=== PATIENT | male | born 2000 | race Hispanic/Latino ===

== ENCOUNTER 2023-05-03 19:45 | Emergency (ER) | payer OTHER, SELFPAY ==
[2023-05-03 19:49] VITALS: BP 132/60; PULSE 96; RESP 18; TEMP 37.2; O2SAT 98; BMI 25.8
--- NOTE | 2023-05-03 19:55 | DI.RAD.S_ITS ---
PROCEDURE: XR ELBOW LT MIN 3V INDICATIONS: fell and injured it 2 days ago. TECHNIQUE: 3 views of the elbow were acquired. COMPARISON: None. FINDINGS: Bones: No displaced fracture. No dislocation. Soft tissues: No elbow joint effusion. No suspicious soft tissue calcifications. IMPRESSION: No acute radiographic abnormality. If there is high concern for occult injury, consider repeat radiography or cross-sectional imaging. Dictated by: Gerardo Faith M.D. on 05/03/2023 at 20:37 Approved by: Gerardo Fiath M.D. on 05/03/2023 at 20:38
--- NOTE | 2023-05-03 21:22 | ED.GENADULT ---
HPI - General Adult General Chief complaint: Extremity Injury, Upper Stated complaint: hyperextended lt elbow Time Seen by Provider: 05/03/23 21:13 Source: patient Mode of arrival: Ambulatory History of Present Illness HPI narrative: Patient is a 22-year-old otherwise healthy male who is here for evaluation of a hyperextension of his left elbow. He states that he was mountain biking and coming down hill when he hyperextended his elbow. Reports no other injuries from the event. He can flex and extend his elbow but does have some discomfort. 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 Review of Systems Constitutional Constitutional: Reports system reviewed and no additional complaints, except as documented Musculoskeletal Musculoskeletal: Reports system reviewed and no additional complaints, except as documented Integumentary/Breasts Skin/Breast: Reports system reviewed and no additional complaints, except as documented Neurologic Neurologic: Reports system reviewed and no additional complaints, except as documented Patient History Social History Smoking Status: Never smoker Smoking Status: Never smoker alcohol intake frequency: a few times a month Substance Use Type: does not use Exam Initial Vital Signs Initial Vital Signs: Vital Signs Temperature 99 F 05/03/23 19:49 Pulse Rate 96 H 05/03/23 19:49 Respiratory Rate 18 05/03/23 19:49 Blood Pressure 132/60 05/03/23 19:49 Pulse Oximetry 98 05/03/23 19:49 Oxygen Delivery Method Room Air 05/03/23 19:49 HENMT Head: normal to inspection and normocephalic Cardio Pulses: radial pulses present on the left Skin General: no rashes or lesions noted Neuro Sensory Exam: no sensory deficits noted Extrem Other: His left wrist and left shoulder unremarkable. He can pronate and supinate. He can flex and extend at the left elbow. Course Orders Ordered: ED Orders 05/03/23 19:55 XR elbow LT min 3V Stat Vital Signs Vital signs: Vital Signs - 8 hr 05/03/23 19:49 05/03/23 21:32 Temperature 99 F 98.0 F Pulse Rate 96 H 90 Respiratory Rate 18 16 Blood Pressure 132/60 130/60 Pulse Oximetry 98 98 Oxygen Delivery Method Room Air Room Air Medical Decision Making Imaging Data Extremity x-ray #1: Radiologist's Impression: PROCEDURE:? XR ELBOW LT MIN 3V ? INDICATIONS:? fell and injured it 2 days ago. ? TECHNIQUE:? 3 views of the elbow were acquired.? ? COMPARISON:? None. ? FINDINGS:? ? Bones:? No displaced fracture.? No dislocation. ? Soft tissues:? No elbow joint effusion.? No suspicious soft tissue calcifications.? ? ? IMPRESSION:? No acute radiographic abnormality.? If there is high concern for occult injury, consider repeat radiography or cross-sectional imaging.?? MDM Narrative Medical decision making narrative: Patient is neurovascularly intact. No fractures on the x-ray. He can flex and extend. No further workup required here in the emergency department. We discussed conservative measures for treatment from this point forward. He was given return precautions. He expressed understanding and agreement. Discharge Plan Departure Patient Disposition: Home Clinical Impression: Elbow sprain Instructions: DI for Elbow Sprain Activity Restrictions/Additional Instructions: You can take Tylenol or ibuprofen for any discomfort. You have no restrictions on your activities. Return to the emergency department for new or worsening symptoms. Referrals: ProviderThuy [Primary Care Provider] - Stand Alone Forms: Patient Portal/API
[2023-05-03 21:32] VITALS: BP 130/60; PULSE 90; RESP 16; TEMP 36.7; O2SAT 98
== END 2023-05-03 21:32 | disposition home or self-care (01) ==
PROVIDERS: Emergency Provider Emergency Medicine
DX: S53.402A Unspecified sprain of left elbow, initial encounter (principal); X50.9XXA Other and unspecified overexertion or strenuous movements or postures, initial encounter; Y93.55 Activity, bike riding
CPT/HCPCS: 73080; 99281; 99282

== ENCOUNTER → 2023-09-08 16:05 | Outpatient (CLI) | payer OTHER, SELFPAY ==
--- NOTE | 2023-09-08 | DI.MRI.S_ITS ---
PROCEDURE: MR SHOULDER LT WO CON INDICATIONS: pain in left shoulder TECHNIQUE: Noncontrast oblique coronal T2 fast spin echo with fat saturation, oblique sagittal T1 spin echo and T2 fast spin echo with fat saturation, axial T1 spin echo and T2 fast spin echo with fat saturation through the shoulder. COMPARISON: None. FINDINGS: Image quality: Excellent. Rotator cuff: Distal supraspinatus tendinosis at its insertion on humeral head is seen. The infraspinatus and subscapularis tendons are intact. No full-thickness rotator cuff tendon rupture. Sagittal images demonstrate no rotator cuff muscle atrophy. Bones and bursae: No bone marrow contusions or fractures. No acromioclavicular joint degeneration. The acromion demonstrates conventional anatomy, without an os acromiale. No pathologic subacromial-subdeltoid or subcoracoid bursal fluid is present. Capsule and soft tissues: There is a lobulated cystic structures seen in right spinoglenoid notch and measures up to 1.8 x 2.3 x 1.2 cm in size series 5, image 7, series 7, image 9. Subtle signal abnormality and fraying of posterior labrum extending from 7 to 10 o'clock position is seen. The long head of the biceps tendon demonstrates normal location and morphology. The rotator interval appears normal, without fibrosis. The coracohumeral ligament is normal in thickness. IMPRESSION: 1. Finding is suggestive of posterior labral tear from 7-10 o'clock position with lobulated paralabral cyst in right spinoglenoid notch as described above. 2. Distal supraspinatus tendinosis. No rotator cuff tendon rupture. No rotator cuff muscle atrophy. 3. No marrow edema. No fracture or dislocation. No pathologic joint or bursal fluid. Dictated by: Shun Bay M.D. on 09/09/2023 at 9:43 Approved by: Shun Bay M.D. on 09/09/2023 at 9:50
== END ==
DX: M25.512 Pain in left shoulder (principal)
CPT/HCPCS: 73221

== ENCOUNTER 2024-07-28 07:30 | Outpatient (RCR) | payer OTHER, SELFPAY ==
--- NOTE | 2024-05-19 12:26 | OT.OPPOC ---
Physical, Occupational & Speech Therapy At [facility] [place] NathalieDaniel [id number] 2000 Visit Care Team Role Provider Type Thuy JIMENES Provider Primary Care Provider Non-Staff Address: Phone: PRASHANT Hebert Attending Provider Non-Staff Referring Provider Address: [address] [place] [address], [id number] Occupational Therapy Plan of Care OT Outpatient Adult Evaluation Start: 05/19/24 11:59 Freq: Status: Active Protocol: Document 05/19/24 12:00 MOUSTAPHA (Rec: 05/19/24 12:25 MOUSTAPHA [id number]) General Information - Adult Visit Information Visit Number 11/05 Plan of Care Dates 05/19/24 -07/28/24 Insurance Information Prime, 12 visits Session Time Visit Start Date 05/19/24 Visit Start Time 09:55 Visit Stop Time 10:40 Setting Treatment Setting Outpatient Care Visit Type Note Type Initial Evaluation Referral Referring Physician Linda Bush Reason for Referral L wrist pain s/p FOOSH injury Identification Identification Confirmed Yes Patient Questionnaires Quick Dash- Upper Extremity Quick Dash UE Score 13.6 Quick Dash UE Impairment 1 to 19% Impaired (Score 1-19) Quick Dash- Work and Sports Modules Quick Dash W&S Score 18.75 Quick Dash Work and Sport Impairment 1 to 19% Impaired (Score 1-19) Goals Treatment Treatment pt tolerated STM to L wrist/ digit extensors. Pt reports small change in pain with active wrist flexion following . Chcf Goals Chcf Goals 1. Pt will increase L gymnastics coach or instructor strength equal or greater to non-dominant R side. 2. Pt will increase L lateral pinch to equal or greater to non-dominant R side. 3. Pt will report AROM of L wrist with no pain x 10 trials . 4. Pt will be I with HEP. 5. 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 Assessment/Plan Assessment Patient Response Good Rehabilitation Potential Good Impairments Identified Body Mechanics,Functional Activities,Pain,Weakness,Soft Tissue Mobility Treatment Assessment Pt is 23 yo M with persistent L wrist pain s/p FOOSH injury on 02 March. Pt had x-rays that were negative. Pt reports that after 1 month of therapy MD will order an MRI. Pt is L hand dominant. Pt reports that he has had pain ever since the fall. Pt reports that wrist flexion and extension cause pain as well as holding and maintaining wrist?s positon in space. For example carrying something at work. Pt describes pain as aching and sharp and rates at 4/10. Pt reports less pain with digits flexed verses digits extended when performing wrist flexion and extension. 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 Pt is L hand dominant. Pt demonstrates 5/5 MMT for wrist flexion, wrist extension , supination, pronation, radial deviation, and ulnar deviation. Digit abd 5/5 but with significant c/o increased pain. He demonstrates gymnastics coach or instructor strength on L 100#/80#/85# (avg 88.3), R 100#/101#/105# (avg 102#) Lateral pinch L 16#, R 19#; pincer L 13#, R 12#; 3 jaw L 19#, R 16# DRUJ ballottement test, pt?s distal ulna has excessive volar translation and limited dorsal translation. When OT provided manual support, pt was able to perform resisted digit abduction with no pain. Pt would benefit from Wrist Widget brace or similar. DRUJ volar and dorsal shift tests are same as non-involved side. Pt would benefit from skilled OT services to address deficits in function, increased pain, and promote return to PLOF. Reviewed with Patient Goals Patient Understanding Good Plan Length of treatment (weeks) 10 Plan of Care Start Date 05/19/24 Plan of Care End Date 07/28/24 Treatment Frequency Once a Week Treatment Duration 45 Minutes Therapeutic Contents Active Range of Motion, Functional Activities,Home Exercise Program,Joint Protection,Manual Therapy, Education,Neuromuscular Re- Education,Self-Care,Splinting, Stretching/Flexibility Activities,Therapeutic Activities,Therapeutic Exercises,Modalities Modalities As Needed Types of Modalities Contrast Bath Additional Types of Modalities MHP/CP Patient Instruction Plan of Care,Questions/ Concerns Functional Wrist/Hand Scan Hand Side Sensory Assessment Sensory Profile2 Electronically Signed by: Marilia Painter OT 05/19/24 2953 If you are in agreement with this Plan of Care, please return a signed and dated copy. I have reviewed this Plan of Care and certify that the skilled therapy services above are required to meet the patient?s needs. Physician Signature Date Printed Name and Credentials Clinical Instructor Signature Printed Name and Credentials
--- NOTE | 2024-05-24 12:42 | OT.OP.TRT ---
Visit Care Team Role Provider Type Thuy JALIL Provider Primary Care Provider Non-Staff Specialty: Medical Address: Phone: Email: PRASHANT Hebert Attending Provider Non-Staff Referring Provider Specialty: Nursing Address: [facility] [place], [address] Email: Occupational Therapy Treatment Note OT Outpatient Treatment Note - Adult Start: 05/19/24 11:59 Freq: Status: Active Protocol: Document 05/24/24 09:54 MOUSTAPHA (Rec: 05/24/24 10:14 MOUSTAPHA [id number]) OT Outpatient Adult Treatment Note Session Time Visit Start Date 05/24/24 Visit Start Time 09:45 Visit Stop Time 10:20 Visit Information Visit Number 2/10 Plan of Care Dates 05/19/24 -07/28/24 Insurance Information Prime, 12 visits Setting Treatment Setting Outpatient Care Visit Type Note Type Treatment Note - Subjective Identification Type Name Identification Reconciled With Medical Record Observations Pt reports that he has ordered a wrist widget to help approimate his forearm. Pt reports no pain during today's treatment, except with resisted wrist extension. That he rated at a 3/10 Chief Complaint(s) Pain Effect on Activity - Objective Chcf Goals 1. 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 2. Pt will increase L lateral pinch to equal or greater to non-dominant R side. 3. Pt will report AROM of L wrist with no pain x 10 trials 4. Pt will be I with HEP. 5. 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 - Treatment 2 Descriptor isometric: pronation x30 reps wrist flex x30 wrist ulnar deviation x30 1 Descriptor digit add: with light rubber band 2nd and 3rd, 2nd-4th, 2nd -5th; 3rd and 4th 10x2 each pairing Manual Therapy Manual Therapy STM dorsal interossei to pt tolerance - Assessment Patient Response to Treatment Good Rehabilitation Potential Good Impairments Identified Body Mechanics,Functional Activities,Pain,Weakness,Soft Tissue Mobility Progress Towards Goals Good Progress Assessment of Improvement On eval, pt presented with a + ballottement test and had improvement in pain when OT manually aligned the DRUJ. Based on this, OT added in supination strengthening as well as ECU strengthening to improve stability ad DRUJ. Pt tolerated these exercises well and denied any complaints during them. Pt has ordered a wrist widget to help maintain alignment of his DRUJ throughout the day. 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 Pt verbalizes understanding. Pt tolerated tx well and continues to be appropriate for skilled OT services. Cont per established POC. Reviewed with Patient/Caregiver Goals Patient/Caregiver Understanding Excellent - Plan Therapy Recommendations Continue with Current Program Amount of Therapy Recommended 2-3 Months Frequency of Treatment Once a Week Length of Session 45 Minutes Therapeutic Contents Active Range of Motion, Functional Activities,Home Exercise Program Modalities As Needed Types of Modalities Contrast Bath Additional Types of Modalities MHP/CP
--- NOTE | 2024-05-31 11:01 | OT.OP.TRT ---
Visit Care Team Role Provider Type Thuy JALIL Provider Primary Care Provider Non-Staff Specialty: Medical Address: Phone: Email: PRASHANT Hebert Attending Provider Non-Staff Referring Provider Specialty: Nursing Address: [facility] [place] [address] [place], [address] Email: Occupational Therapy Treatment Note OT Outpatient Treatment Note - Adult Start: 05/19/24 11:59 Freq: Status: Active Protocol: Document 05/31/24 08:15 MOUSTAPHA (Rec: 05/31/24 09:05 MOUSTAPHA [id number]) OT Outpatient Adult Treatment Note Session Time Visit Start Date 05/31/24 Visit Start Time 08:15 Visit Stop Time 09:00 Visit Information Visit Number 3/10 Plan of Care Dates 05/19/24 -07/28/24 Insurance Information Prime, 12 visits Setting Treatment Setting Outpatient Care Visit Type Note Type Treatment Note - Subjective Identification Type Name Identification Reconciled With Medical Record Observations Pt reports that his wrist widget is supposed to be delivered today. Pt reports that he has been trying to grasp things in neutral or supinated position, but reports he still has pain in these position. Pt reports the objects have to be 10-15# before having painful response . Pt reports no pain at start of tx. Chief Complaint(s) Pain Effect on Activity - Objective Fdc Goals 1. Pt will increase L insulation hoseman strength equal or greater to non-dominant R side. 2. Pt will increase L lateral pinch to equal or greater to non-dominant R side. 3. Pt will report AROM of L wrist with no pain x 10 trials 4. Pt will be I with HEP. 5. 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 - Treatment 4 Descriptor tputty: green gross grasp until fatigue 60 seconds 3 Descriptor Proprioception: wiffle ball with marbles neutral wrist position CW and CCW x 90 seconds 2 Descriptor isometric: (neutral position) pronation x30 reps (neutral position) wrist flex x30 (neutral position) wrist ext x30 (neutral position) wrist ulnar deviation x30 1 Descriptor digit add: with light rubber band 2nd and 3rd, 2nd-4th, 2nd -5th; 3rd and 4th 10x2 each pairing Manual Therapy Manual Therapy STM dorsal interossei to pt tolerance - Assessment Patient Response to Treatment Good Rehabilitation Potential Good Impairments Identified ADLs,Body Mechanics,Functional Activities,Pain,Weakness,Soft Tissue Mobility Progress Towards Goals Good Progress Assessment of Improvement Pt does not present with any guarding behaviors during treatment session. During treatment pt reports pain at max of 3/10 It was just one exercise though. Pt tolerated addition of proprioceptive tasks today with some fatigue following 90 seconds. Pt continues to c/o pain with AROM of L wrist, specifically into extension. OT issued pt green tputty for insulation hoseman strengthening. OT will issue isometric HEP next week, currently pt still requires vcs to perform correctly. Cont per established POC. Reviewed with Patient/Caregiver Goals Patient/Caregiver Understanding Excellent - Plan Therapy Recommendations Continue with Current Program Amount of Therapy Recommended 2-3 Months Frequency of Treatment Once a Week Length of Session 45 Minutes Therapeutic Contents Active Range of Motion, Functional Activities,Home Exercise Program Modalities As Needed Types of Modalities Contrast Bath Additional Types of Modalities MHP/CP
--- NOTE | 2024-06-07 09:45 | OT.OP.TRT ---
Visit Care Team Role Provider Type Phuongshantal JALIL Provider Primary Care Provider Non-Staff Specialty: Medical Address: Phone: Email: PRASHANT Hebert Attending Provider Non-Staff Referring Provider Specialty: Nursing Address: [facility] [place], [address] Email: Occupational Therapy Treatment Note OT Outpatient Treatment Note - Adult Start: 05/19/24 11:59 Freq: Status: Active Protocol: Document 06/07/24 09:00 MOUSTAPHA (Rec: 06/07/24 07:29 MARYDREW [id number]) OT Outpatient Adult Treatment Note Session Time Visit Start Date 06/07/24 Visit Start Time 09:00 Visit Stop Time 09:43 Visit Information Visit Number 02/01 Plan of Care Dates 05/19/24 -07/28/24 Insurance Information Prime, 12 visits Setting Treatment Setting Outpatient Care Visit Type Note Type Treatment Note - Subjective Identification Type Name Identification Reconciled With Medical Record Observations Pt reports he has noticed no change. Pt reports he got his wrist widget on last Wednesday and has been wearing it since . 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 Pt will increase L vat house supervisor strength equal or greater to non-dominant R side. 2. Pt will increase L lateral pinch to equal or greater to non-dominant R side. 3. Pt will report AROM of L wrist with no pain x 10 trials . MET 06/07/24 4. Pt will be I with HEP. 5. 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 - Treatment 5 Descriptor digi flex 5.0: alternating digits x30 full vat house supervisor x30 4 Descriptor tputty: 3 Descriptor Proprioception: wiffle ball with marbles neutral wrist position CW and CCW x 90 seconds 2 Descriptor isometric: (neutral position) pronation x30 reps (neutral position) wrist flex x30 (neutral position) wrist ext x30 (neutral position) wrist ulnar deviation x30 1 Descriptor digit add: with light green extension tool Manual Therapy Manual Therapy STM dorsal interossei to pt tolerance - Assessment Patient Response to Treatment Good Rehabilitation Potential Good Impairments Identified ADLs,Body Mechanics,Functional Activities,Pain,Weakness,Soft Tissue Mobility Progress Towards Goals Good Progress Assessment of Improvement Pt demonstrated AROM wrist flexion and extension at start of tx without any provocation of pain, meeting LTG #3. Pt does not present with any guarding behaviors during treatment session. OT issued pt isometric HEP, pt demonstrated these with min vcs, will reassess at next tx. Pt denies any pain during tx. Cont per established POC. Reviewed with Patient/Caregiver Goals Patient/Caregiver Understanding Excellent - Plan Therapy Recommendations Continue with Current Program Amount of Therapy Recommended 2-3 Months Frequency of Treatment Once a Week Length of Session 45 Minutes Therapeutic Contents Active Range of Motion, Functional Activities,Home Exercise Program Modalities As Needed Types of Modalities Contrast Bath Additional Types of Modalities MHP/CP
--- NOTE | 2024-06-12 10:20 | OT.OP.TRT ---
Visit Care Team Role Provider Type Thuy JALIL Provider Primary Care Provider Non-Staff Specialty: Medical Address: Phone: Email: PRASHANT Hebert Attending Provider Non-Staff Referring Provider Specialty: Nursing Address: [facility] [place], [address] Email: Occupational Therapy Treatment Note OT Outpatient Treatment Note - Adult Start: 05/19/24 11:59 Freq: Status: Active Protocol: Document 06/12/24 09:05 KEVINGLENNEMEKALENIN (Rec: 06/12/24 07:44 MARYDREW [id number]) OT Outpatient Adult Treatment Note Session Time Visit Start Date 06/12/24 Visit Start Time 09:05 Visit Stop Time 09:40 Visit Information Visit Number 03/03 Plan of Care Dates 05/19/24 -07/28/24 Insurance Information Prime, 12 visits Setting Treatment Setting Outpatient Care Visit Type Note Type Treatment Note - Subjective Identification Type Name Identification Reconciled With Medical Record Observations Pt reports no pain at start of tx. Pt reports that his pain is getting less frequent at work, but still occasionally has pain when lifting at work. Pt reports he tries to use his R UE mostly. 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 Pt will increase L deputy sheriff/investigator strength equal or greater to non-dominant R side. 2. Pt will increase L lateral pinch to equal or greater to non-dominant R side. 3. Pt will report AROM of L wrist with no pain x 10 trials . MET 06/07/24 4. Pt will be I with HEP. 5. 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 - Treatment 6 Descriptor free weight: 1# x10 each wrist flexion wrist extension radial/ulnar deviation pronation/supination 5 Descriptor digi flex 5.0: alternating digits x30 full deputy sheriff/investigator x30 4 Descriptor tputty: 3 Descriptor Proprioception: wiffle ball with marbles neutral wrist position CW and CCW x 90 seconds 2 Descriptor isometric: (neutral position) pronation x30 reps (neutral position) wrist flex x30 (neutral position) wrist ext x30 (neutral position) wrist ulnar deviation x30 1 Descriptor digit add: with light green extension tool x30 Manual Therapy Manual Therapy STM dorsal interossei to pt tolerance - Assessment Patient Response to Treatment Good Rehabilitation Potential Good Impairments Identified ADLs,Body Mechanics,Functional Activities,Pain,Weakness,Soft Tissue Mobility Progress Towards Goals Good Progress Assessment of Improvement Pt makes progress toward goals # 2 and #4. Pt does not present with any guarding behaviors during treatment session. Pt reports notable improvement in pain, reporting minimal pain at work and no pain during tx session. Pt continues to need review for HEP, as he needed vcs to perform correctly today. Cont per established POC. Reviewed with Patient/Caregiver Goals Patient/Caregiver Understanding Excellent - Plan Therapy Recommendations Continue with Current Program Amount of Therapy Recommended 2-3 Months Frequency of Treatment Once a Week Length of Session 45 Minutes Therapeutic Contents Active Range of Motion, Functional Activities,Home Exercise Program Modalities As Needed Types of Modalities Contrast Bath Additional Types of Modalities MHP/CP
--- NOTE | 2024-06-19 08:56 | OT.OP.TRT ---
Visit Care Team Role Provider Type Thuy JALIL Provider Primary Care Provider Non-Staff Specialty: Medical Address: Phone: Email: PRASHANT Hebert Attending Provider Non-Staff Referring Provider Specialty: Nursing Address: [address] [place], [address] Email: Occupational Therapy Treatment Note OT Outpatient Treatment Note - Adult Start: 05/19/24 11:59 Freq: Status: Active Protocol: Document 06/19/24 08:15 MOUSTAPHA (Rec: 06/19/24 07:25 MOUSTAPHA [id number]) OT Outpatient Adult Treatment Note Session Time Visit Start Date 06/19/24 Visit Start Time 08:15 Visit Stop Time 08:55 Visit Information Visit Number 04/03 Plan of Care Dates 05/19/24 -07/28/24 Insurance Information Prime, 12 visits Setting Treatment Setting Outpatient Care Visit Type Note Type Treatment Note - Subjective Identification Type Name Identification Reconciled With Medical Record Observations Pt reports that he is going to be putting in a request for an MRI, as he was instructed by his MD following 4 weeks of therapy. Pt reports that his pain is primarily at work. He no longer has pain with pulmonary physical therapist. He continues to wear his wrist widget all the time. 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 Pt will increase L forest nursery worker strength equal or greater to non-dominant R side. MET 1b. Pt will increase L forest nursery worker strength to 10# greater than R side to improve use of tools for work. 2. Pt will increase L lateral pinch to equal or greater to non-dominant R side. 3. Pt will report AROM of L wrist with no pain x 10 trials . MET 06/07/24 4. Pt will be I with HEP. 5. 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 - Treatment 6 Descriptor free weight: 1# x30 each wrist flexion wrist extension radial/ulnar deviation pronation/supination 5 Descriptor digi flex 5.0: alternating digits x30 full forest nursery worker x30 4 Descriptor tputty: 3 Descriptor Proprioception: wiffle ball with marbles neutral wrist position CW and CCW x 120 seconds 2 Descriptor isometric: (neutral position) pronation x30 reps (neutral position) wrist flex x30 (neutral position) wrist ext x30 (neutral position) wrist ulnar deviation x30 1 Descriptor digit add: with light green extension tool x30 - Assessment Patient Response to Treatment Good Rehabilitation Potential Good Impairments Identified ADLs,Body Mechanics,Functional Activities,Pain,Weakness,Soft Tissue Mobility Progress Towards Goals Good Progress Assessment of Improvement Pt has met goal #2 (OT upgrade goal as pt is L handed) and makes progress toward goal #4. Pt does not present with any guarding behaviors during treatment session. Pt reports notable improvement in pain, reporting minimal pain at work and no pain during tx session. Pt reports he can tolerate increased weight at work prior to pain response. Pt tolerated increased reps and time with all exercises. No pain during tx. Pt continues to need review for HEP, as he needed vcs to perform correctly today. Cont per established POC. Reviewed with Patient/Caregiver Goals Patient/Caregiver Understanding Excellent - Plan Therapy Recommendations Continue with Current Program Amount of Therapy Recommended 2-3 Months Frequency of Treatment Once a Week Length of Session 45 Minutes Therapeutic Contents Active Range of Motion, Functional Activities,Home Exercise Program Modalities As Needed Types of Modalities Contrast Bath Additional Types of Modalities MHP/CP
--- NOTE | 2024-07-19 08:59 | OT.OP.TRT ---
Visit Care Team Role Provider Type Sumayalizettwinifred JALIL Provider Primary Care Provider Non-Staff Specialty: Medical Address: Phone: Email: PRASHANT Hebert Attending Provider Non-Staff Referring Provider Specialty: Nursing Address: [facility] [place], [address] Email: Occupational Therapy Treatment Note OT Outpatient Treatment Note - Adult Start: 05/19/24 11:59 Freq: Status: Active Protocol: Document 07/19/24 08:15 MOUSTAPHA (Rec: 07/19/24 07:29 MOUSTAPHA [id number]) OT Outpatient Adult Treatment Note Session Time Visit Start Date 07/19/24 Visit Start Time 08:15 Visit Stop Time 08:55 Visit Information Visit Number 05/03 Plan of Care Dates 05/19/24 -07/28/24 Insurance Information Prime, 12 visits Setting Treatment Setting Outpatient Care Visit Type Note Type Treatment Note - Subjective Identification Type Name Identification Reconciled With Medical Record Observations Pt reports having an 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 Pt stopped wearing wrist widget approximately 2 weeks ago. Pt denies having any pain unless I lift something heavy. Pt reports 20# in a pronated or supinated position. Chief Complaint(s) Pain Effect on Activity - Objective Long-Term Goals 1. 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 MET 1b. Pt will increase L television news producer strength to 10# greater than R side to improve use of tools for work. 2. Pt will increase L lateral pinch to equal or greater to non-dominant R side. 3. Pt will report AROM of L wrist with no pain x 10 trials . MET 06/07/24 4. Pt will be I with HEP. MET 07/19/24 5. 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 - Treatment 6 Descriptor free weight: 1# x30 each wrist flexion wrist extension radial/ulnar deviation pronation/supination 5 Descriptor digi flex 5.0: alternating digits x30 full television news producer x30 3 Descriptor Proprioception: wiffle ball with marbles neutral wrist position CW and CCW x 120 seconds 1 Descriptor digit add: with light green extension tool x30 - Assessment Patient Response to Treatment Good Rehabilitation Potential Good Impairments Identified ADLs,Body Mechanics,Functional Activities,Pain,Weakness,Soft Tissue Mobility Progress Towards Goals Good Progress Assessment of Improvement Pt no longer has pain with resisted digit abduction. Pt has d/c wrist widget with appropriateness. Pt continues to increase overall television news producer and forearm strength and reports decreased instances of pain with normal activities and work related tasks. Pt is making good progress toward remaining goals. Cont per established POC. Reviewed with Patient/Caregiver Goals Patient/Caregiver Understanding Excellent - Plan Therapy Recommendations Continue with Current Program Amount of Therapy Recommended 2-3 Months Frequency of Treatment Once a Week Length of Session 45 Minutes Therapeutic Contents Active Range of Motion, Functional Activities,Home Exercise Program Modalities As Needed Types of Modalities Contrast Bath Additional Types of Modalities MHP/CP
--- NOTE | 2024-07-28 11:53 | OT.OP.TRT ---
Visit Care Team Role Provider Type Thuy JALIL Provider Primary Care Provider Non-Staff Specialty: Medical Address: Phone: Email: PRASHANT Hebert Attending Provider Non-Staff Referring Provider Specialty: Nursing Address: [address] [place], [address] Email: Occupational Therapy Treatment Note OT Outpatient Treatment Note - Adult Start: 05/19/24 11:59 Freq: Status: Active Protocol: Document 07/28/24 07:30 MOUSTAPHA (Rec: 07/28/24 07:26 MOUSTAPHA [id number]) OT Outpatient Adult Treatment Note Session Time Visit Start Date 07/28/24 Visit Start Time 07:30 Visit Stop Time 08:15 Visit Information Visit Number 06/03 Plan of Care Dates 05/19/24 -07/28/24 Insurance Information Prime, 12 visits Setting Treatment Setting Outpatient Care Visit Type Note Type Treatment Note - Subjective Identification Type Name Identification Reconciled With Medical Record Observations Pt denies any pain with normal use of L hand. He reports that he has not returned to his normal weight lifting, but otherwise performs all tasks without c/o pain. 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 Pt will increase L senior compensation consultant strength equal or greater to non-dominant R side. MET 1b. Pt will increase L senior compensation consultant strength to 10# greater than R side to improve use of tools for work. MET 07/28/24 2. Pt will increase L lateral pinch to equal or greater to non-dominant R side. MET 3. Pt will report AROM of L wrist with no pain x 10 trials . MET 06/07/24 4. Pt will be I with HEP. MET 07/19/24 5. 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 07/28/24 - Treatment 6 Descriptor free weight: 2# x30 each wrist flexion wrist extension radial/ulnar deviation pronation/supination 5 Descriptor digi flex 5.0: alternating digits x30 full senior compensation consultant x30 3 Descriptor Proprioception: wiffle ball with marbles neutral wrist position CW and CCW x 120 seconds 1 Descriptor digit add: with light green extension tool x30 - Assessment Patient Response to Treatment Excellent Rehabilitation Potential Excellent Impairments Identified ADLs,Body Mechanics,Functional Activities,Pain,Weakness,Soft Tissue Mobility Progress Towards Goals Excellent Progress,Goals Met, Appropriate for Discharge Assessment of Overall Progress Rehabilitated Assessment of Improvement Pt demonstrates good form with free weight exercises and tolerated increased resistance , pt will continue these on his own for HEP. Pt tolerates all treatment well and reports no replicated symptoms with normal daily tasks. Pt has made excellent progress with skilled OT services and is prepared for d/c at this time. Pt has pain free wrist and forearm strength of 5/5 and no longer has pain with digit abd also 5/5. Pt demonstrates increased senior compensation consultant and pinch strength on L dominant hand ( see objective section for measurements for details), overall he demonstrates 8.4# increase on average L senior compensation consultant and increases on lateral and pincer strength. Pt has met or exceeded all established goals. Pt purchased and wore wrist widget for approximately 6 weeks due to DRUJ instability, specifically excessive volar translation. Pt is - for DRUJ ballottement test at this time. Pt has made excellent progress with skilled OT services and is prepared for d/c at this time. Reviewed with Patient/Caregiver Goals Patient/Caregiver Understanding Excellent - Plan Therapy Recommendations Discharge to Home Exercise Program Amount of Therapy Recommended No Further Therapy Therapeutic Contents Active Range of Motion, Functional Activities,Home Exercise Program Modalities As Needed Types of Modalities Contrast Bath Additional Types of Modalities MHP/CP
--- NOTE | 2024-07-28 11:54 | OT.OP.DC ---
Visit Care Team Role Provider Type Thuy JALIL Provider Primary Care Provider Non-Staff Address: Phone: Email: PRASHANT Hebert Attending Provider Non-Staff Referring Provider Address: [address] [place], [address] Email: OT Outpatient OT Outpatient Adult Evaluation Start: 05/19/24 11:59 Freq: Status: Active Protocol: Document 05/19/24 12:00 MOUSTAPHA (Rec: 05/19/24 12:25 MOUSTAPHA [id number]) General Information - Adult Visit Information Visit Number 11/05 Plan of Care Dates 05/19/24 -07/28/24 Insurance Information Prime, 12 visits Session Time Visit Start Date 05/19/24 Visit Start Time 09:55 Visit Stop Time 10:40 Setting Treatment Setting Outpatient Care Visit Type Note Type Initial Evaluation Referral Referring Physician Linda Bush Reason for Referral L wrist pain s/p FOOSH injury Identification Identification Confirmed Yes Patient Questionnaires Quick Dash- Upper Extremity Quick Dash UE Score 13.6 Quick Dash UE Impairment 1 to 19% Impaired (Score 1-19) Quick Dash- Work and Sports Modules Quick Dash W&S Score 18.75 Quick Dash Work and Sport Impairment 1 to 19% Impaired (Score 1-19) Goals Treatment Treatment pt tolerated STM to L wrist/ digit extensors. Pt reports small change in pain with active wrist flexion following . Alf Goals Developer Relations Manager Goals 1. Pt will increase L boiler blower strength equal or greater to non-dominant R side. 2. Pt will increase L lateral pinch to equal or greater to non-dominant R side. 3. Pt will report AROM of L wrist with no pain x 10 trials . 4. Pt will be I with HEP. 5. 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 Assessment/Plan Assessment Patient Response Good Rehabilitation Potential Good Impairments Identified Body Mechanics,Functional Activities,Pain,Weakness,Soft Tissue Mobility Treatment Assessment Pt is 23 yo M with persistent L wrist pain s/p FOOSH injury on 02 March. Pt had x-rays that were negative. Pt reports that after 1 month of therapy MD will order an MRI. Pt is L hand dominant. Pt reports that he has had pain ever since the fall. Pt reports that wrist flexion and extension cause pain as well as holding and maintaining wrist?s positon in space. For example carrying something at work. Pt describes pain as aching and sharp and rates at 4/10. Pt reports less pain with digits flexed verses digits extended when performing wrist flexion and extension. 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 Pt is L hand dominant. Pt demonstrates 5/5 MMT for wrist flexion, wrist extension , supination, pronation, radial deviation, and ulnar deviation. Digit abd 5/5 but with significant c/o increased pain. He demonstrates boiler blower strength on L 100#/80#/85# (avg 88.3), R 100#/101#/105# (avg 102#) Lateral pinch L 16#, R 19#; pincer L 13#, R 12#; 3 jaw L 19#, R 16# DRUJ ballottement test, pt?s distal ulna has excessive volar translation and limited dorsal translation. When OT provided manual support, pt was able to perform resisted digit abduction with no pain. Pt would benefit from Wrist Widget brace or similar. DRUJ volar and dorsal shift tests are same as non-involved side. Pt would benefit from skilled OT services to address deficits in function, increased pain, and promote return to PLOF. Reviewed with Patient Goals Patient Understanding Good Plan Length of treatment (weeks) 10 Plan of Care Start Date 05/19/24 Plan of Care End Date 07/28/24 Treatment Frequency Once a Week Treatment Duration 45 Minutes Therapeutic Contents Active Range of Motion, Functional Activities,Home Exercise Program,Joint Protection,Manual Therapy, Education,Neuromuscular Re- Education,Self-Care,Splinting, Stretching/Flexibility Activities,Therapeutic Activities,Therapeutic Exercises,Modalities Modalities As Needed Types of Modalities Contrast Bath Additional Types of Modalities MHP/CP Patient Instruction Plan of Care,Questions/ Concerns Functional Wrist/Hand Scan Hand Side Sensory Assessment Sensory Profile2 OT Outpatient Treatment Note - Adult Start: 05/19/24 11:59 Freq: Status: Active Protocol: Document 07/28/24 07:30 MOUSTAPHA (Rec: 07/28/24 07:26 MOUSTAPHA [id number]) OT Outpatient Adult Treatment Note Session Time Visit Start Date 07/28/24 Visit Start Time 07:30 Visit Stop Time 08:15 Visit Information Visit Number 8/ Plan of Care Dates 05/19/24 -07/28/24 Insurance Information Ester Mcfarland, 12 visits Setting Treatment Setting Outpatient Care Visit Type Note Type Discharge Note - Subjective Identification Type Name Identification Reconciled With Medical Record Observations Pt denies any pain with normal use of L hand. He reports that he has not returned to his normal weight lifting, but otherwise performs all tasks without c/o pain. - Objective Objective Measurements Drapery Counselor: L 105#, 85#, 100# (avg 96.7#) R 90#, 80#, 86# (avg 85.3#) lateral pinch: L 18.5# R 16# pincer pinch: L 17# R 16# 3 jaw pinch: L 19# R 18# Developer Relations Manager Goals 1. Pt will increase L boiler blower strength equal or greater to non-dominant R side. MET 1b. Pt will increase L boiler blower strength to 10# greater than R side to improve use of tools for work. MET 07/28/24 2. Pt will increase L lateral pinch to equal or greater to non-dominant R side. MET 3. Pt will report AROM of L wrist with no pain x 10 trials . MET 06/07/24 4. Pt will be I with HEP. MET 07/19/24 5. 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 07/28/24 - - Assessment Patient Response to Treatment Excellent Rehabilitation Potential Excellent Impairments Identified ADLs,Body Mechanics,Functional Activities,Pain,Weakness,Soft Tissue Mobility Progress Towards Goals Excellent Progress,Goals Met, Appropriate for Discharge Assessment of Overall Progress Rehabilitated Assessment of Improvement Pt has pain free wrist and forearm strength of 5/5 and no longer has pain with digit abd also 5/5. Pt demonstrates increased boiler blower and pinch strength on L dominant hand ( see objective section for measurements for details), overall he demonstrates 8.4# increase on average L boiler blower and increases on lateral and pincer strength. Pt has met or exceeded all established goals. Pt purchased and wore wrist widget for approximately 6 weeks due to DRUJ instability, specifically excessive volar translation. Pt is - for DRUJ ballottement test at this time. Pt has made excellent progress with skilled OT services and is prepared for d/c at this time. Reviewed with Patient/Caregiver Goals Patient/Caregiver Understanding Excellent - Plan Therapy Recommendations Discharge to Home Exercise Program Amount of Therapy Recommended No Further Therapy Therapeutic Contents Active Range of Motion, Functional Activities,Home Exercise Program Modalities As Needed Types of Modalities Contrast Bath Additional Types of Modalities MHP/CP
== END 2024-08-15 10:16 | disposition home or self-care (01) ==
LOC: OT 07:30
PROVIDERS: Referring Provider Nurse Practitioner Family; Visit Provider Nurse Practitioner Family
DX: M25.532 Pain in left wrist (principal)
CPT/HCPCS: 97110; 97140; 97165

== ENCOUNTER → 2024-09-12 08:53 | Outpatient (CLI) | payer OTHER, SELFPAY | PROVIDERS: Referring Provider Nurse Practitioner Family; Visit Provider Nurse Practitioner Family | DX: D86.0 Sarcoidosis of lung (principal) | CPT/HCPCS: 94060; 94729 ==

== ENCOUNTER → 2024-11-06 07:40 | Outpatient (CLI) | payer OTHER, SELFPAY ==
--- NOTE | 2024-11-06 07:41 | DI.ECHO.S_ITS ---
[facility] : : [address] : : [place] : : [id number] : : Phone: [phone] Echocardiogram Report + + :Name: OSCAR DODGE JR Study Date: 11/06/2024 Height: 65 in : :Hospital ReadingLocation: Weight: 180 lb : : Gender: Male BSA: 1.9 m2 : :: 2000 Age: 23 yrs BP: 118/72 mmHg: :Reason For Study: SHORTNESS OF BREATH, CHEST PAIN : :Ordering Physician: MAC, : :ISA Performed By: Ibis Long : :Referring: ISA WATTS : + + Interpretation Summary The patient was in sinus tachycardia with heart rates between 96-123 bpm during the exam. The ejection fraction is estimated to be 60-65%. The right ventricle is normal in size and function. Pulmonary artery pressures cannot be estimated because of the lack of a measurable TR jet velocity. No significant valvular abnormality. Procedure: A two-dimensional transthoracic echocardiogram with color flow and Doppler was performed. The study quality was technically adequate. Comparison is made with the echocardiogram of 06/21/2024. The patient was in sinus tachycardia with heart rates between 96-123 bpm during the exam. Left Ventricle: The left ventricle is normal in size and wall thickness. The ejection fraction is estimated to be 60-65%. Left ventricular wall motion is normal. Diastolic function could not be accurately assessed due to tachycardia. Right Ventricle: The right ventricle is normal in size and function. Atria: The left atrial size is normal. Right atrial size is normal. There is no Doppler evidence for an interatrial shunt. Mitral Valve: The mitral valve leaflets appear to open well. There is no mitral regurgitation noted. Aortic Valve: The aortic valve is trileaflet. The aortic valve opens well. There is no aortic valve stenosis. No aortic regurgitation is present. Tricuspid Valve: The tricuspid valve leaflets are thin and pliable. There is a trace or physiologic amount of tricuspid regurgitation. Pulmonary artery pressures cannot be estimated because of the lack of a measurable TR jet velocity. Pulmonic Valve: The pulmonic valve leaflets are thin and pliable; valve motion is normal. There is trace pulmonic regurgitation. Great Vessels: The aortic root is normal size. The dimensions of the ascending aorta are normal. The IVC is of normal diameter and collapses greater than 50% with a sniff. This suggests a low right atrial pressure of 3 mm Hg. Pericardium/ Pleura There is no pericardial effusion. There is no pleural effusion. MMode/2D Measurements & Calculations LVIDd: 4.6 cm LVOT diam: 2.2 cm LVIDs: 3.0 cm Ao root diam: 2.8 cm FS: 35.6 % asc Aorta Diam: 2.9 cm IVSd: 0.66 cm Ao Arch Diam (Prox Trans): 2.8 cm LVPWd: 0.75 cm LV lang. diameter/BSA (cm/m^2): 2.4 LV sys. diameter/BSA (cm/m^2): 1.6 LA A2 area: 15.6 cm2 RA long axis: 4.3 cm LA A4 area: 12.0 cm2 RA area: 14.0 cm2 LA length (vol): 4.6 cm RA vol: 38.2 ml LA vol: 34.7 ml RA : 20.2 ml/m2 LA vol index: 18.4 ml/m2 IVC diam: 0.85 cm RVD1 (basal): 4.0 cm RVD2 (mid): 2.5 cm TAPSE: 1.7 cm Doppler Measurements & Calculations Ao V2 max: 122.4 cm/sec LVOT Max Blair: 104.5 cm/sec Ao V2 mean: 80.5 cm/sec LV V1 max P.4 mmHg Ao max P.0 mmHg LV V1 VTI: 15.4 cm Ao mean P.0 mmHg DELORES(I,D): 3.7 cm2 Ao V2 VTI: 15.4 cm DELORES(V,D): 3.2 cm2 sev ratio: 1.0 DELORES indexed to BSA (cm^2/m^2): 2.0 MV E max blair: 54.0 cm/sec PA V2 max: 112.8 cm/sec MV A max blair: 41.3 cm/sec PA V2 mean: 66.7 cm/sec MV E/A: 1.3 PA mean P.3 mmHg Med Peak E' Blair: 8.9 cm/sec PA pr(Accel): 37.9 mmHg E/E' med: 6.1 Lat Peak E' Blair: 9.5 cm/sec E/E' lat: 5.7 E/e' average: 5.9 MV dec time: 0.14 sec SV(LVOT): 57.4 ml Reading Physician:HOMERO
--- NOTE | 2024-11-06 07:54 | DI.RAD.S_ITS ---
PROCEDURE: XR CHEST 2V INDICATIONS: COUGH TECHNIQUE: 2 views of the chest were acquired. COMPARISON: None. FINDINGS: Surgical changes and devices: None. Lungs and pleura: Patchy opacity in the right upper lung zone. Mediastinum: Mediastinal contours are normal. Heart size is normal. Bones and chest wall: No suspicious bony abnormalities. Soft tissues appear unremarkable. IMPRESSION: Patchy opacity in the right upper lung zone, concerning for bacterial pneumonia. Dictated by: Roland Chou M.D. on 11/06/2024 at 11:08 Approved by: Roland Chou M.D. on 11/06/2024 at 11:15
--- NOTE | 2024-11-06 10:05 | EKG_ITS ---
[address] [address] Test Date: 2024-11-06 Pat Name: Daniel Arnold Jr Department: DEFAULT Room: Gender: Male Gm Mobile: ROXANE : 2000 Requested By: Order Number: [id number] Reading MD: Lazaro Mcclellan MD Measurements Intervals [place] Rate: 95 P: 57 IA: 138 QRS: 52 QRSD: 88 T: 39 QT: 330 QTc: 414 Interpretive Statements Normal sinus rhythm Early repolarization Electronically Signed On 11-06-2024 16:45:53 PST by Lazaro Mcclellan MD
== END ==
PROVIDERS: Referring Provider Chiropractor; Visit Provider Chiropractor
DX: R00.0 Tachycardia, unspecified (principal); R06.02 Shortness of breath; R07.9 Chest pain, unspecified
CPT/HCPCS: 71046; 93005; 93010; 93306

== ENCOUNTER → 2025-01-10 12:39 | Outpatient (CLI) | payer OTHER, SELFPAY ==
--- NOTE | 2025-01-10 13:08 | DI.MRI.S_ITS ---
PROCEDURE: MR LUMBAR SPINE WO CON INDICATIONS: LOW BACK PAIN TECHNIQUE: Noncontrast sagittal T1 spin echo and T2 fast echo, sagittal STIR, and T2 fast spin echo through the lumbar spine. In cases with scoliosis, additional coronal T2 fast spin echo may be performed. COMPARISON: None. FINDINGS: Image quality: Excellent. Alignment and Curvature: There is normal bony alignment. Bone Marrow: Marrow is of normal overall signal. No acute vertebral body compression fractures. Spinal Cord: Conus medullaris terminates at the L1 level. Visualized cord demonstrates normal signal and size. Paraspinous Soft Tissues: No paravertebral masses. T12-L1: Normal appearance. L1-L2: Normal appearance. L2-L3: Normal appearance. L3-L4: Normal appearance. L4-L5: Loss of disc signal. Mild, diffuse disc bulge. Mild narrowing of the central canal. No neural foraminal narrowing. No neural compression. Fissure in the posterior annulus. L5-S1: Loss of disc signal. Mild, diffuse disc bulge. No central stenosis. No neural foraminal narrowing. No neural compression. Fissure in the posterior annulus. IMPRESSION: Mild L4-L5 and L5-S1 degenerative disc disease. No severe central canal stenosis. No severe neural foraminal stenosis. No neural compression. L4-L5 and L5-S1 disc annulus fissures. Dictated by: Zamzam Guy MD, PhD on 01/10/2025 at 13:37 Approved by: Zamzam Guy MD, PhD on 01/10/2025 at 13:40
== END ==
PROVIDERS: Referring Provider Nurse Practitioner Family; Visit Provider Nurse Practitioner Family
DX: M54.50 Low back pain, unspecified (principal); M51.369 Other intervertebral disc degeneration, lumbar region without mention of lumbar back pain or lower extremity pain; M48.07 Spinal stenosis, lumbosacral region; M51.86 Other intervertebral disc disorders, lumbar region; M51.87 Other intervertebral disc disorders, lumbosacral region
CPT/HCPCS: 72148